=== PATIENT | female | born 1995 | race Caucasian/White ===

== ENCOUNTER → 2021-06-14 | Emergency (ER) | payer MEDICAID ==
[~2021-06-14] VITALS: Ht 162.6 cm; Wt 89.5 kg
[~2021-06-14] MED LIST: AZITHROMYCIN 500 MG TABLET PO ONE; CefTRIAXone SODIUM 1 GM/VIAL IM ONE; LIDOCAINE/PF 1% 2 ML VIAL IM ONE; MetroNIDAZOLE 250 MG TABLET PO ONE
[2021-06-14 18:59] LABS: APPEARANCE,URINE CLOUDY (CLEAR); GLUCOSE, URINE (UA) NEGATIVE (NEGATIVE); KETONES,URINE 15 mg/dL (NEGATIVE); LEUKOCYTE ESTERASE ,URINE MODERATE (NEGATIVE); OCCULT BLOOD,URINE NEGATIVE (NEGATIVE); PROTEIN,URINE NEGATIVE (NEGATIVE)
[2021-06-14 19:18] LABS: BILIRUBIN,URINE PRELIM. POSITIVE (NEGATIVE); NITRATE,URINE NEGATIVE (NEGATIVE)
[2021-06-14 19:19] LABS: BACTERIA,URINE None Seen /HPF (None Seen); RBC,URINE None Seen /HPF (0-2); SQUAMOUS EPITHELIAL CELL,UR Few /LPF (None Seen)
[2021-06-14 20:52] VITALS: BP 111/65
== END | disposition home or self-care (01) ==
LOC: EMS 15:32
DX: N76.0 Acute vaginitis (principal); B96.89 Other specified bacterial agents as the cause of diseases classified elsewhere; K21.9 Gastro-esophageal reflux disease without esophagitis
CPT/HCPCS: 81001; 84703; 87086; 87210; 87491; 87591; 96372; 99283; J0696; J3490; Q9967; 87077

== ENCOUNTER 2021-08-13 13:20 | Inpatient (IN) | payer MEDICAID, SELFPAY ==
[~2021-08-13] VITALS: Ht 160 cm; Wt 88.6 kg
[2021-08-13 13:48] LABS: BASOPHILS % (AUTO) 0.5 % (0.0-2.0); EOSINOPHILS % (AUTO) 0.7 % (1.0-6.0); HEMATOCRIT 43.9 % (36-46); HEMOGLOBIN 14.8 g/dL (12.0-16.0); LYMPHOCYTES % (AUTO) 23.3 % (22.0-44.0); MEAN CORPUSCULAR HEMOGLOBIN 27.4 pg (26.0-34.0); MEAN CORPUSCULAR HGB CONC 33.8 G/dL (31.0-37.0); MEAN CORPUSCULAR VOLUME 81 fL (80-100); MONOCYTES # (AUTO) 0.5 K/uL (0.1-1.0); MONOCYTES % (AUTO) 5.9 % (2.0-9.0); NEUTROPHILS # (AUTO) 6.1 K/uL (1.8-7.7); NEUTROPHILS % (AUTO) 69.6 % (40.0-70.0); PLATELET COUNT (AUTO) 290 K/uL (150-450); RED CELL DISTRIBUTION WIDTH 13.8 % (11.5-14.5)
[2021-08-13 14:01] LABS: ANION GAP 7 mmol/L (8-16); CALCIUM, TOTAL 9.6 mg/dL (8.8-10.5); CARBON DIOXIDE 28 mmol/L (22-29); CHLORIDE 103 mmol/L (98-107); CREATININE 0.74 mg/dL (0.60-1.30); GLOMERULAR FILTR. RATE CALC > 60 mL/min (>60); GLUCOSE,RANDOM 89 mg/dL (70-110); POTASSIUM 3.9 mmol/L (3.5-5.1); SODIUM SERUM 138 mmol/L (136-145); UREA NITROGEN, BLOOD 12 mg/dL (7-18)
[2021-08-13 14:14] LABS: ALANINE AMINOTRANSFERASE 22 U/L (12-78); ALKALINE PHOSPHATASE 76 U/L (46-116); ASPARTATE AMINOTRANSFERASE 17 U/L (15-37); BILIRUBIN,TOTAL 0.4 mg/dL (0.1-1.0); HCG,QUANTITATIVE < 1 mIU/mL (0-6)
[2021-08-13 14:41] LABS: COVID AG,FIA SOURCE NASOPHARYNGEAL
[2021-08-13 15:49] LABS: AMPHET/METH SCREEN,URINE NEGATIVE (NEGATIVE); BARBITURATE SCREEN, URINE NEGATIVE (NEGATIVE); BENZODIAZEPINES SCREEN,URINE NEGATIVE (NEGATIVE); CANNABINOID SCREEN,URINE NEGATIVE (NEGATIVE); COCAINE SCREEN,URINE NEGATIVE (NEGATIVE); METHADONE SCREEN, URINE NEGATIVE (NEGATIVE); OPIATE SCREEN,URINE NEGATIVE (NEGATIVE); PHENCYCLIDINE SCREEN,URINE NEGATIVE (NEGATIVE)
[2021-08-13] MEDS ORDERED: LORazepam 2 MG TABLET PO ONE (17:45)
[2021-08-13] MEDS ORDERED: CETI-450 PO (17:58)
[2021-08-13] MEDS ORDERED: HALOPERIDOL 5 MG TABLET PO PRN (19:00)
[2021-08-13] MEDS ORDERED: LORazepam 2 MG TABLET PO PRN (19:00)
[2021-08-13] MEDS ORDERED: ZOLPIDEM TARTRATE 10 MG TABLET PO PRN (19:00)
[2021-08-14 02:53] LABS: CHOL/HDL RATIO 2.9 (3.9-5.7); CHOLESTEROL 191 mg/dL (131-200); HDL CHOLESTEROL 65 mg/dL (40-60); LDL CHOL (CALC.) 109 mg/dL (0-130); TRIGLYCERIDES 86 mg/dL (15-150)
[2021-08-14] MEDS ORDERED: *PATIENT'S OWN MED [ENTER DRUG, DOSE, FREQUENCY IN COMMENTS] CLINICAL ONE (08:15)
[2021-08-14] MEDS ORDERED: NORGESTIMATE PO SCH (09:00)
[2021-08-14] MEDS ORDERED: ETHINYL ESTRADIOL PO SCH (09:00)
[2021-08-14 16:28] VITALS: BP 117/80
[2021-08-14] MEDS ORDERED: MAGNESIUM HYDROXIDE SUSPENSION 30 ML UDCUP PO PRN (23:15)
[2021-08-14] MEDS ORDERED: IBUPROFEN 600 MG TABLET PO PRN (23:15)
[2021-08-14] MEDS ORDERED: BENZOCAINE/MENTHOL LOZENGE PO PRN (23:15)
[2021-08-14] MEDS ORDERED: DOCUSATE SODIUM 100 MG CAPSULE PO PRN (23:15)
[2021-08-14] MEDS ORDERED: LOPERAMIDE HCL 2 MG CAPSULE PO PRN (23:15)
[2021-08-14] MEDS ORDERED: ONDANSETRON HCL 4 MG TABLET PO PRN (23:15)
[2021-08-14] MEDS ORDERED: MAG HYDROX/AL HYDROX/SIMETH ES 30 ML SUSPENSION UDCUP PO PRN (23:15)
[2021-08-14] MEDS ORDERED: CloNIDine HCL 0.1 MG TABLET PO PRN (23:15)
[2021-08-14] MEDS ORDERED: BACITRACIN 28 GM OINTMENT TP PRN (23:15)
[2021-08-14] MEDS ORDERED: ACETAMINOPHEN 325 MG TABLET PO PRN (23:15)
[2021-08-14] MEDS ORDERED: PETROLATUM,WHITE 28 GM JELLY TP PRN (23:15)
[2021-08-14] MEDS ORDERED: ALBUTEROL SULFATE HFA 90 MCG/PUFF 8 GM INHALER IH PRN (23:15)
[2021-08-14] MEDS ORDERED: OMEPRAZOLE 20 MG CAPSULE PO PRN (23:15)
[2021-08-15 00:49] VITALS: BP 124/65
[2021-08-15 08:56] VITALS: BP 123/73
[2021-08-15] MEDS ORDERED: METHYLTEST PO SCH (09:00)
[2021-08-15] MEDS ORDERED: *NON-FORMULARY MED [ENTER DRUG, DOSE, FREQ IN COMMENTS] CLINICAL ONE (09:00)
[2021-08-15] MEDS ORDERED: ESTROGENS ESTERIFIED PO SCH (09:00)
[2021-08-15] MEDS: *NON-FORMULARY MED [ENTER DRUG, DOSE, FREQ IN COMMENTS] CLINICAL SCH (09:25)
[2021-08-15] MEDS: ETHINYL ESTRADIOL PO SCH (09:51)
[2021-08-15] MEDS: NORGESTIMATE PO SCH (09:51)
[2021-08-15 16:41] VITALS: BP 114/70
[2021-08-15] MEDS: LITHIUM CARBONATE 300 MG CAPSULE PO SCH (17:00)
[2021-08-16 01:10] VITALS: BP 111/62
[2021-08-16 08:25] VITALS: BP 115/60
[2021-08-16] MEDS: LITHIUM CARBONATE 300 MG CAPSULE PO SCH ×2 (09:01→16:41)
[2021-08-16] MEDS: ETHINYL ESTRADIOL PO SCH (09:27)
[2021-08-16] MEDS: NORGESTIMATE PO SCH (09:27)
[2021-08-16] MEDS: *NON-FORMULARY MED [ENTER DRUG, DOSE, FREQ IN COMMENTS] CLINICAL SCH (10:40)
[2021-08-16 16:32] VITALS: BP 117/78
[2021-08-17 00:48] VITALS: BP 102/62
[2021-08-17 08:37] VITALS: BP 108/66
[2021-08-17] MEDS: NORGESTIMATE PO SCH (09:09)
[2021-08-17] MEDS: ETHINYL ESTRADIOL PO SCH (09:09)
[2021-08-17] MEDS: LITHIUM CARBONATE 300 MG CAPSULE PO SCH ×2 (09:09→16:48)
[2021-08-17 16:17] VITALS: BP 133/74
[2021-08-18 04:00] VITALS: BP 114/70
[2021-08-18 08:32] VITALS: BP 132/76
[2021-08-18] MEDS: ETHINYL ESTRADIOL PO SCH (08:33)
[2021-08-18] MEDS: NORGESTIMATE PO SCH (08:33)
[2021-08-18] MEDS: LITHIUM CARBONATE 300 MG CAPSULE PO SCH (08:34)
[2021-08-18] MEDS ORDERED: LITH300C3 PO (11:43)
== END 2021-08-18 14:00 | disposition home or self-care (01) | DRG 754 ==
LOC: EMS 13:20 → B2S 08-14 09:23
PROVIDERS: ADMIT Psychiatry & Neurology Psychiatry; ATTEND Psychiatry & Neurology Psychiatry
DX: F32.9 Major depressive disorder, single episode, unspecified (principal); R45.851 Suicidal ideations; E66.9 Obesity, unspecified; F41.9 Anxiety disorder, unspecified; G47.00 Insomnia, unspecified; K59.00 Constipation, unspecified; Z20.822 Contact with and (suspected) exposure to COVID-19; K21.9 Gastro-esophageal reflux disease without esophagitis; Z91.52 Personal history of nonsuicidal self-harm; Z79.899 Other long term (current) drug therapy; Z68.34 Body mass index [BMI] 34.0-34.9, adult
CPT/HCPCS: 80053; 80061; 80178; 84702; 85025; 99285; G0480; Q9967